=== PATIENT | male | born 2000 | race Caucasian/White ===

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

== ENCOUNTER 2021-06-20 19:36 | Emergency (ER) | payer BC ==
[2021-06-20 19:49] VITALS: BP 119/54; PULSE 71
[2021-06-20] MEDS ORDERED: Ondansetron 8 MG in Sodium Chloride 0.9% 50 ML IV STA (20:11)
[2021-06-20] MEDS ORDERED: Sodium Chloride 0.9% 1,000 ML IV SCH (20:15)
[2021-06-20 20:20] LABS: CHLORIDE,CL 101 mEq/L (98-106); SODIUM,NA 139 mEq/L (136-145)
--- NOTE | 2021-06-20 20:52 | EDM.PDOC ---
ED HPI GENERAL MEDICAL PROBLEM - General Chief Complaint: General Stated Complaint: bad headache/vomiting Time Seen by Provider: 06/20/21 20:20 Source of Information: Reports: Patient History Limitations: Reports: No Limitations - History of Present Illness INITIAL COMMENTS - FREE TEXT/NARRATIVE: Ambrose is a 21 yo male who presents to the ED via private vehicle with a bad headache and vomiting. States his headache has subsided now. Admits he wasn't feeling very well today, lack of an appetite. Admits about an hour before arrival he had went into the shower and ended up getting lightheaded. When he got out he did go lay down and states he felt like was getting a migraine. He states he started to get really nauseated and has thrown up a few times now. Currently is still nauseated but again headache is gone. Denies any recent cold symptoms. States he has been fairly healthy. No recent alcohol use. States he hasn't had a migraine in a long time. Headache Pain Score (Numeric/FACES): 7 - Related Data Allergies Allergy/AdvReac Type Severity Reaction Status Date / Time amoxicillin trihydrate AdvReac Diarrhea Verified 06/20/21 19:45 [From Augmentin] potassium clavulanate AdvReac Diarrhea Verified 06/20/21 19:45 [From Augmentin] Home Meds: Home Meds . [No Known Home Meds] 06/20/21 [History] Past Medical History Neurological History: Reports: Migraines Psychiatric History: Reports: Anxiety, Depression - Past Surgical History HEENT Surgical History: Reports: Tonsillectomy Social & Family History - Family History Cardiac: Reports: Hypertension - Tobacco Use Tobacco Use Status *Q: Current Every Day Tobacco User Years of Tobacco use: 3 Packs/Tins Daily: 0.5 - Caffeine Use Caffeine Use: Reports: Coffee, Soda - Recreational Drug Use Recreational Drug Use: No - Living Situation & Occupation Living situation: Reports: Single, with Family ED ROS GENERAL - Review of Systems Review Of Systems: See Below Constitutional: Reports: Decreased Appetite. Denies: Fever, Chills HEENT: Reports: No Symptoms. Denies: Sinus Problem, Throat Pain, Throat Swelling Respiratory: Reports: No Symptoms. Denies: Shortness of Breath, Cough Cardiovascular: Reports: Lightheadedness. Denies: Chest Pain, Blood Pressure Problem, Dyspnea on Exertion, Syncope GI/Abdominal: Reports: Abdominal Pain (epigastric), Nausea, Vomiting. Denies: Diarrhea, Hematemesis : Reports: No Symptoms Musculoskeletal: Reports: No Symptoms Skin: Reports: No Symptoms Neurological: Reports: No Symptoms Psychiatric: Reports: No Symptoms ED EXAM, GENERAL - Physical Exam Exam: See Below Exam Limited By: No Limitations General Appearance: Alert, WD/WN, No Apparent Distress Ears: Normal External Exam, Hearing Grossly Normal Nose: Normal Inspection, Normal Mucosa, No Blood Throat/Mouth: Normal Inspection, Normal Lips, Normal Teeth, Normal Gums, Normal Oropharynx, Normal Voice, No Airway Compromise Head: Atraumatic, Normocephalic Neck: Normal Inspection, Supple Respiratory/Chest: No Respiratory Distress, Lungs Clear, Normal Breath Sounds, No Accessory Muscle Use Cardiovascular: Regular Rate, Rhythm, No Murmur GI/Abdominal: Normal Bowel Sounds, Soft, No Organomegaly, No Distention, No Abnormal Bruit, No Mass, Tender (mild generalized) Extremities: Normal Inspection Neurological: Alert, Oriented, Normal Cognition Psychiatric: Normal Affect, Normal Mood Skin Exam: Warm, Dry, Intact, Normal Color, No Rash Course - Vital Signs Last Recorded V/S: Last Vital Signs Temp 96.5 F L 06/20/21 19:46 Pulse 71 06/20/21 19:46 Resp 18 06/20/21 19:46 BP 119/54 L 06/20/21 19:46 Pulse Ox 100 06/20/21 19:46 - Orders/Labs/Meds Orders: Active Orders 24 hr Category Date Time Status Sodium Chloride 0.9% [Normal Saline] 1,000 ml Med 06/20/21 20:15 Active IV ASDIRECTED Medication Orders Sodium Chloride (Normal Saline) 1,000 mls @ 999 mls/hr IV ASDIRECTED ENIO Last Admin: 06/20/21 20:19 Dose: 999 mls/hr Documented by: DANY Labs: Laboratory Tests 06/20/21 06/20/21 Range/Units 20:03 20:03 WBC 9.8 (4.0-11.0) 10^3/uL RBC 5.04 (4.50-6.00) x10^6/uL Hgb 15.0 (14.0-18.0) g/dL Hct 43.4 (42.0-52.0) % MCV 86.1 (83.0-97.0) fL MCH 29.8 (27.0-32.0) pg MCHC 34.6 (32.0-36.0) g/dL RDW Coeff of Leisa 11.7 (11.0-15.0) % Plt Count 252 (150-400) 10^3/uL Immature Gran % (Auto) 0.1 (0.0-4.9) % Neut % (Auto) 77.7 H (41-71) % Lymph % (Auto) 14.7 L (24-44) % [place] % (Auto) 5.9 (0-10) % Eos % (Auto) 1.2 (0-6) % Baso % (Auto) 0.4 (0-1) % Neut # (Auto) 7.64 (1.80-8.00) x10^3/uL Lymph # (Auto) 1.45 (0.60-5.00) 10^3/uL [place] # (Auto) 0.58 (0.00-1.50) 10^3/uL Eos # (Auto) 0.12 (0.00-1.50) 10^3/uL Baso # (Auto) 0.04 (0.00-0.50) 10^3/uL Immature Gran # (Auto) 0.01 (0.00-0.49) 10^3/uL Sodium 139 (136-145) mEq/L Potassium 3.5 D (3.5-5.0) mEq/L Chloride 101 (98-106) mEq/L Carbon Dioxide 27 (21-32) mmol/L BUN 12 (7-18) mg/dL Creatinine 1.2 (0.7-1.3) mg/dL Est Cr Clr Drug Dosing 90.59 mL/min Estimated GFR (MDRD) > 60 (>=60) mL/min Glucose 92 (75-99) mg/dL Calcium 8.8 (8.4-10.1) mg/dL Total Bilirubin 0.6 (0.0-1.0) mg/dL AST 18 (15-37) U/L ALT 19 (12-78) U/L Alkaline Phosphatase 79 (46-116) U/L C-Reactive Protein < 0.2 L (0.2-0.8) mg/dL Total Protein 7.1 (6.4-8.2) g/dL Albumin 4.1 (3.4-5.0) g/dL Amylase 53 (25-115) U/L Lipase 79 (73-393) U/L Meds: Medications Generic Name Dose Route Start Last Admin Trade Name Veronica PRN Reason Stop Dose Admin Sodium Chloride 1,000 mls @ 999 mls/hr 06/20/21 20:15 06/20/21 20:19 Normal Saline IV 999 mls/hr ASDIRECTED ENIO Administration Discontinued Medications Generic Name Dose Route Start Last Admin Trade Name Veronica PRN Reason Stop Dose Admin Ondansetron HCl 8 mg/ Sodium 54 mls @ 100 mls/hr 06/20/21 20:11 06/20/21 20:22 Chloride IV 06/20/21 20:43 100 mls/hr STAT STA Administration Departure - Departure Time of Disposition: 21:24 Disposition: Home, Self-Care 01 Clinical Impression: Nausea & vomiting Migraine Qualifiers: Migraine type: unspecified Status migrainosus presence: without status migrainosus Intractability: not intractable Qualified Code(s): G43.909 - Migraine, unspecified, not intractable, without status migrainosus - Discharge Information Instructions: Nausea and Vomiting, Adult, [id number], Migraine Headache, [id number] Forms: ED Department Discharge Additional Instructions: 1) Zofran 4mg ODT - 1 tablet every 4 hours as needed for nausea 2) Keep drinking plenty of fluids 3) If any worsening abdominal pain, fevers, diarrhea... recommend follow up 4) Labs unremarkable tonight Sepsis Event Note (ED) - Evaluation Sepsis Screening Result: No Definite Risk - Focused Exam Vital Signs: Vital Signs Temp Pulse Resp BP Pulse Ox 06/20/21 19:46 96.5 F L 71 18 119/54 L 100 - Problem List & Annotations (1) Migraine SNOMED Code(s): 88830367 Code(s): G43.909 - MIGRAINE, UNSP, NOT INTRACTABLE, WITHOUT STATUS MIGRAINOSUS Status: Acute Qualifiers: Migraine type: unspecified Status migrainosus presence: without status migrainosus Intractability: not intractable Qualified Code(s): G43.909 - Migraine, unspecified, not intractable, without status migrainosus (2) Nausea & vomiting SNOMED Code(s): 47139552 Code(s): R11.2 - NAUSEA WITH VOMITING, UNSPECIFIED Status: Acute Qualifiers: Vomiting type: unspecified Vomiting Intractability: non-intractable Yusef lified Code(s): R11.2 - Nausea with vomiting, unspecified - My Orders Last 24 Hours: My Active Orders 06/20/21 20:15 Sodium Chloride 0.9% [Normal Saline] 1,000 ml IV ASDIRECTED - Assessment/Plan Last 24 Hours: My Active Orders 06/20/21 20:15 Sodium Chloride 0.9% [Normal Saline] 1,000 ml IV ASDIRECTED Plan: Ambrose is doing well in the ED. No vomiting since arrival. Headache has completely subsided. Will finish current liter of fluids. Take home pack of zofran provided. Advised if any symptoms arise again or any new onset of symptoms to let us know.
[2021-06-20] MEDS ORDERED: Take Home: Ondansetron 4 MG Tab.DIS, 2 Tab Pack PO ONE (21:25)
== END 2021-06-20 22:02 | disposition home or self-care (01) ==
LOC: CC.ED 19:36
DX: G43.909 Migraine, unspecified, not intractable, without status migrainosus (principal); Z88.0 Allergy status to penicillin; Z72.0 Tobacco use
CPT/HCPCS: 36415; 80053; 82150; 83690; 85025; 86140; 96365; 99284-25; A9270-GY; J2405; J7030

== ENCOUNTER 2023-03-02 04:09 | Emergency (ER) | payer BC, MEDICAID, OTHER ==
[2023-03-02 04:12] VITALS: BP 111/77; PULSE 88
[2023-03-02] MEDS ORDERED: Sodium Chloride 0.9% 1,000 ML ONE (04:32)
[2023-03-02] MEDS ORDERED: Sodium Chloride 0.9% 1,000 ML IV ONE (04:35)
[2023-03-02] MEDS ORDERED: Ondansetron 4 MG/2 ML SDV IVPUSH PRN (04:39)
[2023-03-02] MEDS ORDERED: Famotidine 20 MG/2 ML SDV IVPUSH ONE (04:39)
[2023-03-02 04:52] LABS: BASOPHILS ABSOLUTE AUTO 0.02 10^3/uL (0.00-0.50); BASOPHILS PERCENT AUTO 0.4 % (0-1); EOSINOPHILS ABSOLUTE AUTO 0.22 10^3/uL (0.00-1.50); EOSINOPHILS PERCENT AUTO 4.8 % (0-6); HEMATOCRIT 47.3 % (42.0-52.0); HEMOGLOBIN 16.6 g/dL (14.0-18.0); LYMPHOCYTES ABSOLUTE AUTO 0.86 10^3/uL (0.60-5.00); LYMPHOCYTES PERCENT AUTO 18.9 % (24-44); MEAN CORPUSCULAR HEMOGLOBIN 29.7 pg (27.0-32.0); MEAN CORPUSCULAR HGB CONC 35.1 g/dL (32.0-36.0); MEAN CORPUSCULAR VOLUME 84.6 fL (83.0-97.0); MONOCYTES ABSOLUTE AUTO 0.92 10^3/uL (0.00-1.50); MONOCYTES PERCENT AUTO 20.2 % (0-10); NEUTROPHILS ABSOLUTE AUTO 2.53 x10^3/uL (1.80-8.00); NEUTROPHILS PERCENT AUTO 55.7 % (41-71); PLATELET COUNT,PLT 234 10^3/uL (150-400); RED BLOOD CELL COUNT 5.59 x10^6/uL (4.50-6.00); WHITE BLOOD CELL COUNT,WBC 4.6 10^3/uL (4.0-11.0)
[2023-03-02 05:16] LABS: APPEARANCE,URINE CLEAR (CLEAR); COLOR,URINE YELLOW (YELLOW); GLUCOSE,URINE NEGATIVE (NEGATIVE); KETONES,URINE 40 mg/dL (NEGATIVE); LEUKOCYTE ESTERASE,URINE NEGATIVE (NEGATIVE); NITRITE,URINE NEGATIVE (NEGATIVE); OCCULT BLOOD,URINE NEGATIVE (NEGATIVE); PROTEIN,URINE 30 mg/dL (NEGATIVE); UROBILINOGEN,URINE 0.2 EU/dL (0.2-1.0)
[2023-03-02 05:17] LABS: BILIRUBIN,URINE SMALL (NEGATIVE)
[2023-03-02 05:19] LABS: BACTERIA,URINE RARE /HPF (NOT SEEN); EPITHELIAL CELLS,URINE OCCASIONAL /HPF (NOT SEEN); MUCUS,URINE MANY /HPF (NOT SEEN); RBC,URINE 0-5 /HPF (0-5); WBC,URINE 0-5 /HPF (0-5)
[2023-03-02 05:20] LABS: ALBUMIN 4.2 g/dL (3.4-5.0); BILIRUBIN TOTAL 0.5 mg/dL (0.0-1.0); CALCIUM 9.3 mg/dL (8.4-10.1); CREATININE 1.2 mg/dL (0.7-1.3); EST CRCL DRUG DOSING (CG) 85.99 mL/min; POTASSIUM,K 3.7 mEq/L (3.5-5.0); PROTEIN TOTAL,TP 7.6 g/dL (6.4-8.2)
[2023-03-02] MEDS ORDERED: Metoclopramide 10 MG/2 ML SDV IVPUSH ONE (05:28)
== END 2023-03-02 05:50 | disposition home or self-care (01) ==
LOC: CC.ED 04:09
DX: K52.9 Noninfective gastroenteritis and colitis, unspecified (principal); Z88.0 Allergy status to penicillin; Z88.8 Allergy status to other drugs, medicaments and biological substances
CPT/HCPCS: 36415; 80053; 81001; 83605; 83690; 85025; 96361; 96374; 96375; 99283; 99284-25; J2405; J2765; J3490; J7030